=== PATIENT | male | born 1995 | race Caucasian/White ===

== ENCOUNTER 2016-12-30 23:14 | Emergency (ER) | payer OTHER ==
--- NOTE | 2016-12-30 23:56 | EDPHY ---
H & P Smoking Status: Never smoked Time Seen by Provider: 12/30/16 23:44 HPI/ROS: CHIEF COMPLAINT: Chin laceration HISTORY OF PRESENT ILLNESS: 21-year-old male presents to the emergency department with anterior chin laceration. The patient was playing hockey and was hit by another player with an elbow in his chin. He did not lose consciousness. He continued to play but because the wound kept bleeding, the management trainer applied a Super glue type substance to the wound hold closed. The incident happened just prior to arrival. His tetanus shot is current. He denies loss of consciousness. Denies a headache. Denies neck or back pain. Denies chest pain or difficulty breathing. REVIEW OF SYSTEMS: Constitutional: No fever, no chills. Eyes: No double or blurry vision. ENT: No sore throat. Respiratory: No cough, no shortness of breath. Cardiac: No chest pain. Gastrointestinal: No abdominal pain, vomiting or diarrhea. Genitourinary: No dysuria. Musculoskeletal: No neck or back pain. Skin: No rashes. Neurological: No headache. (Darline Ríosrina Zoraida) Past Medical/Surgical History: Negative (Enedina Ríosa Zoraida) Social History: [employer] student (Mana Ríos) Physical Exam: General Appearance: Alert, no distress. Mentating normally and answering questions appropriately. Eyes: Pupils equal and round. Extraocular motions are all intact. ENT: Mouth: Mucous membranes moist. No dental injury or malocclusion. Respiratory: No wheezing, rhonchi, or rales, lungs are clear to auscultation. Cardiovascular: Regular rate and rhythm. Gastrointestinal: Abdomen is soft and nontender, no masses, no rebound or guarding, bowel sounds normal. Neurological: Alert and oriented x 3, cranial nerves II through XII grossly intact Skin: 2.5 cm right anterior chin laceration. No palpable bony tenderness. Warm and dry, no rashes. Musculoskeletal: Nontender to palpate along the cervical, thoracic or lumbar spine. Neck is supple. Extremities: Full range of motion and no peripheral edema. Psychiatric: Patient is oriented X 3, there is no agitation. (Mana Ríos) Constitutional: Initial Vital Signs Temperature (C) 36.9 C 12/30/16 23:16 Heart Rate 77 12/30/16 23:16 Respiratory Rate 16 12/30/16 23:16 Blood Pressure 133/65 H 12/30/16 23:16 O2 Sat (%) 93 12/30/16 23:16 O2 Delivery Mode Room Air Allergies/Adverse Reactions: No Known Allergies Allergy (Unverified 12/30/16 23:20) Home Medications: Medication Instructions Recorded NK [No Known Home Meds] 12/30/16 Medical Decision Making Procedures: Laceration repair. Verbal consent was obtained from the patient. The 2.5 cm laceration on the chin was anesthetized using 1% lidocaine with epinephrine. The wound was irrigated with saline, draped and explored to its base with a gloved finger. There were no deep structures involved. The wound was repaired with 5 0 Prolene , 7 sutures. The wound repair was simple. The procedure was performed by myself. (Mana Ríos) ED Course/Re-evaluation: 21-year-old male presents with chin laceration. The wound was repaired, see procedure note. His tetanus shot is current. He did not lose consciousness. He has no headache. He has a normal neurologic examination. (Mana Ríos) Differential Diagnosis: Including but not limited to fracture, laceration, contusion, abrasion, retained foreign body, infection (Mana Ríos) Other Provider: PHYSICIAN DOCUMENTATION: The patient was evaluated and managed by the [employer] Consultant. My co- signature indicates that I have reviewed this chart and I agree with the findings and plan of care as documented. I am the secondary supervising physician. (Clara García) Departure - Departure Disposition: Home, Routine, Self-Care Clinical Impression: Chin laceration Qualifiers: Encounter type: initial encounter Qualified Code(s): S01.81XA - Laceration without foreign body of other part of head, initial encounter Condition: Good Instructions: Care For Your Stitches (ED), Laceration (ED), Acute Wounds (ED) Additional Instructions: Wound Care Follow-Up: Removal of sutures in 5-7 days. Suture removal is complimentary in uncomplicated cases. Infection or abnormal findings would require reevaluation by the MD. In that case, you may be billed. Return if you notice any signs or symptoms of infection such as redness, swelling, increased pain, fever, purulent drainage. Referrals: DR SERVANDO [Other] - As per Instructions
[2016-12-31 01:12] VITALS: BP 124/76; PULSE 81; RESP 17; TEMP 98.8; O2SAT 96
== END 2016-12-31 01:11 | disposition home or self-care (01) ==
PROC: 0HQ1XZZ Repair Face Skin, External Approach (ICD-10-PCS; principal; 2016-12-30)
DX: S01.81XA Laceration without foreign body of other part of head, initial encounter (principal); W51.XXXA Accidental striking against or bumped into by another person, initial encounter; Y99.8 Other external cause status; Y93.65 Activity, lacrosse and field hockey